=== PATIENT | female | born 1995 | race Asian ===

== ENCOUNTER 2017-01-22 17:55 | Emergency (ER) | payer OTHER ==
[2017-01-22 18:03] VITALS: TEMP 36.8; Ht 162.6 cm
--- NOTE | 2017-01-22 19:08 | DIAGNOSTIC IMAGING REPORT ---
RIGHT KNEE 3 VIEWS CLINICAL HISTORY: right knee injury Right trauma. Pain. COMPARISON: None. DISCUSSION: The bones and joint spaces appear intact. There is no evidence of fracture, dislocation or bony disease. There is no evidence for soft tissue swelling. IMPRESSION: Negative study. Electronically signed by: Chandan Gomez M.D. 01/22/2017 7:06 PM Dictated Date/Time: 01/22/2017 7:06 PM
[2017-01-22 19:41] VITALS: BP 122/70; PULSE 70; O2SAT 99
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
== END 2017-01-22 19:43 | disposition home or self-care (01) ==
LOC: C.EDB 17:57 → C.EDD 19:43
DX: S89.91XA Unspecified injury of right lower leg, initial encounter (principal); W50.0XXA Accidental hit or strike by another person, initial encounter; Y93.75 Activity, martial arts